=== PATIENT | female | born 1995 | race Caucasian/White ===

== ENCOUNTER → 2024-07-31 15:10 | Outpatient (CLI) | payer OTHER, SELFPAY ==
--- NOTE | 2024-07-31 15:13 | DI.US.S_ITS ---
PROCEDURE: US PELVIC COMPLETE INDICATIONS: IUD PLACEMENT CHECK TECHNIQUE: Real-time scanning was performed of the pelvic organs, with image documentation. Additional endovaginal scanning was necessary due to incomplete visualization of the adnexal and endometrial structures by transabdominal scanning. COMPARISON: None. FINDINGS: Uterus: Uterus is anteverted and normal in size at 7.8 x 3.8 x 5.2 cm. The myometrium is homogeneous. The endometrium measures 2.8 mm combined thickness. Intrauterine device in good position Ovaries: Both ovaries appropriate in size, echotexture vascularity Other: No pathologic free abdominal or pelvic fluid. IMPRESSION: Well-positioned intrauterine device Approved by: Jewel Robbins M.D. on 07/31/2024 at 18:38
== END ==
PROVIDERS: Referring Provider Nurse Practitioner Family; Visit Provider Nurse Practitioner Family
DX: Z30.431 Encounter for routine checking of intrauterine contraceptive device (principal)
CPT/HCPCS: 76830; 76856

== ENCOUNTER → 2025-07-04 10:29 | Outpatient (CLI) | payer OTHER, SELFPAY ==
--- NOTE | 2025-07-04 18:17 | DI.NM.S_ITS ---
DATE OF SERVICE: 07/04/2025 PROCEDURE: Exercise stress test. INDICATIONS: Bradycardia. CARDIAC STRESS: The patient underwent exercise stress test under the supervision of an attending staff. She walked on John protocol for 16 minutes and 36 seconds, achieved maximum heart rate of 181, which was 95% of target heart rate, normal blood pressure response. Resting blood pressure 115/78 and peak blood pressure 176/90. 16.9 METS of workload. Baseline rhythm sinus. During stress, no convincing ischemic changes. No chest pain. Had some shortness of breath. No significant arrhythmias. Normal recovery. CONCLUSION: Exercise stress test is negative for inducible ischemia. Excellent exercise tolerance. Normal hemodynamic response. No anginal symptoms. No significant arrhythmias. Overall, low-risk exercise stress test. Jhoana Pederson - REGINA/elina/NOEMÍ doc#: [id number]/job#: [id number] dd: 07/04/2025 17:13:00 dt: 07/04/2025 17:52:00 DICTATING /COPIES TO: Shay Ellis MD COPIES MNE: ELINOR;
== END ==
LOC: NUCM 10:31
PROVIDERS: Visit Provider Internal Medicine
DX: R07.9 Chest pain, unspecified (principal)
CPT/HCPCS: 93017